=== PATIENT | female | born 1990 | race Hispanic/Latino ===

== ENCOUNTER 2018-05-21 08:03 | Outpatient (CLI) | payer OTHER ==
--- NOTE | 2018-05-21 09:20 | ULT ---
OBSTETRIC ULTRASOUND: INDICATION: survey. FINDINGS: There is a single live intrauterine gestation in breech presentation. The placenta is posterior in l ocation. The placental margin lies 1.8 cm from the level of the internal os and is slightly low-lyin g. ALTON is measured 18.14 cm. Cardiac activity is noted at 138 b.p.m. The biparietal diameter was 4.83 cm giving an estimated gestational age of 20 weeks and 5 days. Head circumference is 17.48 cm giving an estimated gestational age of 20 weeks and 1 day. The abdominal circumference is 14.97 cm giving an estimated gestational age of 20 weeks and 2 days. Femoral length was 3.2 cm giving an estimated gestational age of 20 weeks and 0 days. The average gestational age by ultrasound is 20 weeks and 2 days with an estimated due date of . The estimated weight is 333 gm +/- 49 gm (12 ounces +/- 2 ounces). survey demonstrates limited visualization of the head and spine. Visualized aspects of the lat eral ventricles appear within normal limits. Four-chamber heart appeared within normal limits. The visualized stomach and kidneys, cord insertion, and bladder appear within normal limits. Three-vesse l cord appeared within normal limits. Lips and nose were not well seen. IMPRESSION: 1. Some technical limitations to the examination with limited visualization of portions of the anatomy. Would recommend a followup obstetric ultrasound in 1-2 weeks to document full survey . At this examination, a repeat evaluation of the head, spine, and lips and nose is recommended. 2. Slightly low-lying posterior placenta. POS: [facility]
== END 2018-05-21 08:04 | disposition home or self-care (01) ==
LOC: BICULT 08:03
PROVIDERS: ATTEND Family Medicine
DX: O09.892 Supervision of other high risk pregnancies, second trimester (principal); O44.42 Low lying placenta NOS or without hemorrhage, second trimester
CPT/HCPCS: 76805

== ENCOUNTER 2018-10-01 08:44 | Inpatient (IN) | payer OTHER, SELFPAY ==
[2018-10-01] MEDS ORDERED: Promethazine HCl 25 MG/ML VIAL IM PRN ×2 (09:25→13:27)
[2018-10-01] MEDS ORDERED: Butorphanol Tartrate 1 MG/ML VIAL SLOW IVP PRN (09:25)
[2018-10-01] MEDS ORDERED: Ondansetron PF 4 MG/2 ML Vial IVP PRN ×3 (09:25→16:12)
[2018-10-01] MEDS ORDERED: CEFAZOLIN 3 GM in Premix Bag 1 BAG IVPB SCH (09:25)
[2018-10-01] MEDS: Lactated Ringer's 1,000 ML IV SCH ×2 (09:30→17:41)
[2018-10-01 09:51] LABS: Hemoglobin 12.2 g/dL (12.0-16.0); Mean Corpuscular HGB CONC 32.8 g/dL (32.0-36.0); Mean Corpuscular Volume 82.4 fL (78.0-98.0); Mean Platelet Volume 9.8 fL (7.4-10.4); Platelet Count 194 thou/uL (130-400); RBC Distribution Width 13.8 % (11.5-14.5); Red Blood Cell (RBC) Count 4.53 mill/uL (4.20-5.40); White Blood Cell (WBC) Count 9.8 thou/uL (4.8-10.8)
[2018-10-01 09:59] VITALS: BMI 51.3
[2018-10-01] MEDS ORDERED: CEFAZOLIN 3 GM, Admixture Fee 1 EACH in Sodium Chloride 0.9% 100 ML IVPB SCH (10:00)
[2018-10-01] MEDS ORDERED: Bicitra 30 ML UDCUP PO SCH (10:00)
[2018-10-01 10:23] LABS: HBSAg Index 0.23 S/CO (0-0.99); Hep B Surf Ag Non-Reactive S/CO (NonReactive); Syphilis Antibody Nonreactive (Nonreactive); Syphilis Antibody Index 0.06 S/CO (<1.00 Non-Reactive)
[2018-10-01] MEDS ORDERED: MORPHINE 5 MG/10 ML PF VIAL ONE (12:14)
[2018-10-01] MEDS ORDERED: ePHEDrine/0.9% NaCl/PF SYRINGE 50 mg/10 ml ONE (12:15)
[2018-10-01] MEDS ORDERED: Ondansetron PF 4 MG/2 ML Vial ONE ×2 (12:15→14:15)
[2018-10-01] MEDS ORDERED: Oxytocin 10 UNITS/ML VIAL ONE ×3 (12:15→13:02)
[2018-10-01] MEDS ORDERED: Ketorolac Tromethamine 30 MG/ML VIAL ONE ×2 (12:15→14:15)
[2018-10-01] MEDS ORDERED: PHENYLEPHRINE-NS 100 MCG/ML 10 ML SYRINGE ONE ×2 (12:40→14:15)
[2018-10-01] MEDS ORDERED: Dexamethasone 4 mg/ml Vial ONE (12:47)
[2018-10-01] MEDS ORDERED: Ondansetron HCl/PF 4 MG/2 ML Vial IVP PRN (13:27)
[2018-10-01] MEDS ORDERED: Naloxone HCl 0.4 mg/ml Vial IVP PRN ×2 (13:27)
[2018-10-01] MEDS ORDERED: Meperidine HCl/PF 25 MG/ML VIAL SLOW IVP PRN (13:27)
[2018-10-01] MEDS ORDERED: HYDROmorphone 2 MG/ML VIAL SLOW IVP PRN (13:27)
[2018-10-01] MEDS ORDERED: Naloxone HCl 0.4 mg/ml Vial IV PRN (13:27)
[2018-10-01] MEDS ORDERED: L&D-Morphine 4 MG/ML VIAL SLOW IVP PRN (13:27)
[2018-10-01] MEDS ORDERED: Eucerin (Mineral Oil/Petrolatum,White) 30 gm Jar TOP PRN (13:27)
[2018-10-01] MEDS ORDERED: Promethazine HCl 25 MG SUPP PR PRN (13:27)
[2018-10-01] MEDS ORDERED: diphenhydrAMINE 50 MG/ML VIAL IVP PRN (13:27)
[2018-10-01] MEDS ORDERED: Communication Order-Pharmacy FS SCH (13:30)
[2018-10-01] MEDS ORDERED: Dexamethasone 20 MG/5 ML VIAL ONE (14:15)
[2018-10-01] MEDS ORDERED: ePHEDrine 50 MG/ML VIAL ONE (14:15)
[2018-10-01] MEDS ORDERED: Lanolin Ointment 7 GM TUBE TOP PRN (16:12)
[2018-10-01] MEDS ORDERED: diphenhydrAMINE 25 MG CAP PO PRN (16:12)
[2018-10-01] MEDS ORDERED: NS / Oxytocin 40 units/1000ml 1,000 ML IV SCH (16:12)
[2018-10-01] MEDS ORDERED: Ibuprofen 800 MG TAB PO SCH (16:12)
[2018-10-01] MEDS ORDERED: Bisacodyl 10 MG SUPP PR PRN (16:12)
[2018-10-01] MEDS ORDERED: Ketorolac Tromethamine 30 MG/ML VIAL IVP PRN ×2 (18:00→21:00)
[2018-10-01] MEDS ORDERED: Acetaminophen 1,000 MG in Premix Bag 1 BAG IVPB PRN (19:00)
[2018-10-01] MEDS: Docusate Calcium (SURFAK) 240 MG CAP PO SCH (22:54)
[2018-10-01] MEDS: Ferrous Sulfate 325 MG TAB PO SCH (22:54)
--- NOTE | 2018-10-01 23:13 | OP ---
DATE OF PROCEDURE: 10/01/2018 PRIMARY SURGEON: Rajesh Ortiz MD CONSTRUCTION TECHNICIAN SURGEON: Grover Gonzales MD PROCEDURE PERFORMED: Repeat low-transverse section. ANESTHESIA: Spinal. QUANTITATIVE BLOOD LOSS: 696 mL. PREPROCEDURAL DIAGNOSES: 1. Term intrauterine at 39 weeks. 2. Morbid obesity. 3. History of macrosomia. 4. Hyperthyroidism. 5. 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 SECONDARY DIAGNOSES: 1. Term intrauterine at 39 weeks. 2. Morbid obesity. 3. History of macrosomia. 4. Hyperthyroidism. 5. 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 6. Extensive omental adhesions to the uterus and rectus muscle. INDICATIONS FOR PROCEDURE: Ms. Wolfe is a 28-year-old 2, para 1-0-0-1 at 39 weeks and 2 days, who presented for repeat low-transverse section indicated for prior due to failure to progress and macrosomic fetus. DESCRIPTION OF PROCEDURE: The risks, benefits, and alternatives were explained. The patient provided informed consent. She received preoperative antibiotics of Ancef 3 g IV. She was taken to the OR and spinal anesthesia was initiated. She was placed in the supine position with left lateral tilt and prepped and draped in the usual sterile fashion. A Pfannenstiel incision was made with a scalpel along the previous scar and carried down to the level of fascia sharply. Subcutaneous bleeding vessels were made hemostatic with Bovie cautery. Fascia was sharply nicked and extended in the curvilinear fashion using curved Lawson scissors. The superior and inferior edges of the fascia were elevated and sharply and bluntly dissected free from the underlying rectus muscle. The scarred linea alba was identified, and the abdominal cavity was entered using Lawson scissors. After the midline was found to be free of adhesions, the rectus muscles were divided sharply using Lawson scissors, taking precaution not to injure any underlying structures. Bladder blade was placed, and the lower uterine segment was visualized. At this time, it was noted that a significant amount of the omentum was adhered to the right rectus muscle but did not interfere with visualization. Clean scalpel was used to make a lower transverse uterine score. The uterus was entered bluntly, and intact membranes with clear fluid were found. Child's head was elevated manually and delivered through the hysterotomy using fundal pressure. Delayed cord clamping was utilized, and the infant was handed off the table to the waiting New Born Resuscitative Team. The cord blood was collected prior to manual removal of the placenta. Uterus was then exteriorized and curetted with two dry laps. The hysterotomy was closed using a running locking 0 Vicryl suture. It was then inspected and noted to have four areas of slow bleeding, which were addressed with [id number] stitches using 0 Vicryl again. Uterus was inspected one final time, and Seprafilm was placed before interiorizing the uterus. Lower uterine segment was examined one final time. The attention was then turned to the rectus muscle and fascia, which was noted to have several small oozing vessels. These were addressed using Bovie cautery. On the right rectus muscle along the superior edge of the fascial incision, bleeding was still noted despite generous Bovie cautery, so Surgicel was placed in this region to address the bleeding. Fascia was closed using running nonlocking 0 PDS suture. Subcutaneous adipose tissue was reapproximated using 3-0 Vicryl. Skin was reapproximated with marco a. Prevena wound VAC was placed over the incision. Counts were correct x2. The patient went to unit after routine care and recovery. FINDINGS: 1. Viable male , appropriate for gestational age, born at 1252 hours with Apgars of 8 and 9 at 1 and 5 minutes respectively. 2. Extensive abdominal adhesions. 3. Grossly normal placenta, discarded. DRAINS: Dhillon catheter draining clear urine. Job ID: [id number] [facility]
[2018-10-02] MEDS ORDERED: Meperidine HCl/PF 25 MG/ML VIAL IM PRN (01:30)
[2018-10-02] MEDS ORDERED: Butorphanol Tartrate 1 MG/ML VIAL SLOW IVP PRN (01:30)
[2018-10-02 07:41] LABS: Hemoglobin 9.9 g/dL (12.0-16.0); Mean Corpuscular HGB CONC 33.1 g/dL (32.0-36.0); Mean Corpuscular Hemoglobin 27.8 pg (27.0-31.0); Mean Corpuscular Volume 83.8 fL (78.0-98.0); Mean Platelet Volume 9.9 fL (7.4-10.4); Platelet Count 198 thou/uL (130-400); RBC Distribution Width 13.5 % (11.5-14.5); Red Blood Cell (RBC) Count 3.58 mill/uL (4.20-5.40); White Blood Cell (WBC) Count 15.4 thou/uL (4.8-10.8)
[2018-10-02] MEDS: Simethicone Chewable 80 MG TAB PO PRN ×2 (08:31→17:05)
[2018-10-02] MEDS: Docusate Calcium (SURFAK) 240 MG CAP PO SCH ×2 (08:31→21:47)
[2018-10-02] MEDS: Ferrous Sulfate 325 MG TAB PO SCH ×2 (08:31→21:47)
[2018-10-02] MEDS: Prenatal Vitamin 1 TAB PO SCH (08:31)
[2018-10-02] MEDS: HYDROcodone/Acetaminophen 5/325 mg Tablet PO PRN ×3 (08:32→17:06)
[2018-10-02] MEDS: Methimazole 10 MG TAB PO SCH ×2 (09:25→22:08)
[2018-10-02] MEDS ORDERED: Acetaminophen 500 MG TAB PO PRN (10:44)
[2018-10-02] MEDS: Ibuprofen 800 MG TAB PO SCH ×2 (13:57→21:47)
[2018-10-03] MEDS: HYDROcodone/Acetaminophen 5/325 mg Tablet PO PRN ×2 (05:05→13:52)
[2018-10-03] MEDS: Ibuprofen 800 MG TAB PO SCH ×3 (05:06→20:28)
[2018-10-03] MEDS: Simethicone Chewable 80 MG TAB PO PRN (05:06)
[2018-10-03] MEDS: Prenatal Vitamin 1 TAB PO SCH (09:37)
[2018-10-03] MEDS: Methimazole 10 MG TAB PO SCH ×2 (09:37→20:35)
[2018-10-03] MEDS: Docusate Calcium (SURFAK) 240 MG CAP PO SCH ×2 (09:37→20:28)
[2018-10-03] MEDS: Ferrous Sulfate 325 MG TAB PO SCH ×2 (09:39→20:28)
[2018-10-04] MEDS: HYDROcodone/Acetaminophen 5/325 mg Tablet PO PRN ×4 (03:12→17:37)
[2018-10-04] MEDS: Ibuprofen 800 MG TAB PO SCH ×2 (06:04→14:23)
[2018-10-04 08:12] VITALS: BP 116/55; TEMP 98.5
[2018-10-04] MEDS: Ferrous Sulfate 325 MG TAB PO SCH (09:06)
[2018-10-04] MEDS: Docusate Calcium (SURFAK) 240 MG CAP PO SCH (09:06)
[2018-10-04] MEDS: Prenatal Vitamin 1 TAB PO SCH (09:06)
[2018-10-04] MEDS: Methimazole 10 MG TAB PO SCH (09:07)
== END 2018-10-04 18:56 | disposition home or self-care (01) | DRG 788 ==
LOC: L&D 08:44 → 3SW 15:57
PROVIDERS: ADMIT Family Medicine; ATTEND Family Medicine
PROC: 10D00Z1 Extraction of Products of Conception, Low, Open Approach (ICD-10-PCS; principal; 2018-10-01)
PROC: 3E0P05Z Introduction of Adhesion Barrier into Female Reproductive, Open Approach (ICD-10-PCS; 2018-10-01)
DX: O34.219 Maternal care for unspecified type scar from previous cesarean delivery (principal); O99.214 Obesity complicating childbirth; E66.01 Morbid (severe) obesity due to excess calories; O99.284 Endocrine, nutritional and metabolic diseases complicating childbirth; E05.90 Thyrotoxicosis, unspecified without thyrotoxic crisis or storm; O99.89 Other specified diseases and conditions complicating pregnancy, childbirth and the puerperium; N73.6 Female pelvic peritoneal adhesions (postinfective); Z3A.39 39 weeks gestation of pregnancy; Z37.0 Single live birth; Z90.721 Acquired absence of ovaries, unilateral; Z87.59 Personal history of other complications of pregnancy, childbirth and the puerperium
CPT/HCPCS: 36415; 51702; 85027; 86780; 86850; 86900; 86901; 87340; J0131; J0690; J1100; J1885; J2270; J2310; J2405; J2590; J3490; J7050